=== PATIENT | female | born 1970 | race Caucasian/White ===

== ENCOUNTER 2018-04-11 03:55 | Emergency (ER) | payer BC ==
[~2018-04-11] VITALS: Ht 170.2 cm; Wt 102.3 kg
[2018-04-11 04:00] VITALS: BP 137/91; TEMP 97.9
[2018-04-11 04:49] LABS: BASO # 0.1 (0.0-0.2); BASO % 0.7 % (0.0-2.0); EOS # 0.1 (0.0-0.7); EOS % 1.6 % (0-4.0); GRAN # 4.1 (1.4-6.5); GRAN % 57.6 % (42.2-75.2); HEMATOCRIT 41.1 % (37.0-47.0); HEMOGLOBIN 14.2 g/dl (12.5-16.0); LYMPH # 2.4 (1.2-3.4); LYMPH % 34.6 % (20.0-51.0); MEAN CELL VOLUME 88 fl (80.0-100.0); MEAN CORPUSCULAR HEMOGLOBIN 30 pg (27.0-31.0); MEAN CORPUSCULAR HGB CONC 35 g/dl (33.0-37.0); MEAN PLATELET VOLUME 11.4 fl (7.4-10.4); MONO # 0.4 (0.1-0.6); MONO % 5.4 % (1.7-9.3); PLATELET COUNT 255 K/mm3 (130-400); RED BLOOD COUNT 4.68 M/mm3 (4.10-5.30); REDCELL DISTRIBUTION WIDTH-CV 11.7 % (11.5-14.5)
[2018-04-11 04:56] LABS: INR 2.4 (0.8-3.0); PROTHROMBIN TIME 27.4 SECONDS (9.7-12.8)
[2018-04-11 05:01] LABS: CALCIUM 9.5 mg/dL (8.4-10.2); CREATININE, serum 0.63 mg/dL (0.52-1.25); POTASSIUM 3.5 mmol/L (3.4-5.0)
[2018-04-11] MEDS ORDERED: JANTOVEN3 M1 PO (05:07)
[2018-04-11] MEDS ORDERED: WELLBUTRIN 75MG75 MG PO (05:08)
[2018-04-11] MEDS ORDERED: LEXAPRO20 MG PO (05:09)
[2018-04-11] MEDS ORDERED: PLAQUENIL 200M200 MG PO (05:12)
[2018-04-11] MEDS ORDERED: LIDODERM 5% PATC1 EA TP (05:29)
[2018-04-11] MEDS ORDERED: TYLENOL W/COD1 UDTAB PO (05:29)
[2018-04-11] MEDS ORDERED: FLEXERIL 1010 MG/TAB PO (05:29)
[2018-04-11 05:44] VITALS: PULSE 63
== END 2018-04-11 05:44 | disposition home or self-care (01) ==
LOC: COL.ER 03:55
PROVIDERS: Emergency Medicine
DX: S16.1XXA Strain of muscle, fascia and tendon at neck level, initial encounter (principal); M43.6 Torticollis; F41.9 Anxiety disorder, unspecified; F32.9 Major depressive disorder, single episode, unspecified; Z79.01 Long term (current) use of anticoagulants; X50.1XXA Overexertion from prolonged static or awkward postures, initial encounter; Z90.710 Acquired absence of both cervix and uterus
CPT/HCPCS: J1885; J2360; J3010; J7040

== ENCOUNTER → 2018-04-18 | Outpatient (CLI) | payer BC ==
[~2018-04-18] MED LIST: FLEXERIL 1010 MG/TAB PO; JANTOVEN3 M1 PO; LEXAPRO20 MG PO; LIDODERM 5% PATC1 EA TP; PLAQUENIL 200M200 MG PO; TYLENOL W/COD1 UDTAB PO; WELLBUTRIN 75MG75 MG PO
[2018-04-18 10:15] LABS: INR 1.8 (0.8-3.0); PROTHROMBIN TIME 20.3 SECONDS (9.7-12.8)
== END ==
LOC: COL.LAB 09:37
DX: Z79.01 Long term (current) use of anticoagulants (principal)

== ENCOUNTER 2020-01-30 11:42 | Emergency (ER) | payer BC ==
[~2020-01-30] VITALS: Ht 170.2 cm; Wt 110.0 kg
[2020-01-30 11:43] VITALS: TEMP 98.3
[2020-01-30] MEDS ORDERED: ELIQUIS 5MG PO (12:05)
[2020-01-30] MEDS ORDERED: LEXAPRO20 MG PO (12:06)
[2020-01-30] MEDS ORDERED: CRESTOR40 MG PO (12:06)
[2020-01-30 12:07] LABS: INR 1.3 (0.8-3.0); PROTHROMBIN TIME 14.1 SECONDS (9.7-12.8)
[2020-01-30 12:09] LABS: PARTIAL THROMBOPLASTIN TIME 35.1 SECONDS (26.0-37.0)
[2020-01-30 12:13] LABS: BASO % 0.3 % (0.0-2.0); EOS # 0.1 (0.0-0.7); EOS % 1.4 % (0-4.0); GRAN # 6.2 (1.4-6.5); GRAN % 68.8 % (42.2-75.2); HEMATOCRIT 40.4 % (37.0-47.0); HEMOGLOBIN 13.8 g/dl (12.5-16.0); LYMPH # 1.9 (1.2-3.4); LYMPH % 20.7 % (20.0-51.0); MEAN CELL VOLUME 88 fl (80.0-100.0); MEAN CORPUSCULAR HEMOGLOBIN 30 pg (27.0-31.0); MEAN CORPUSCULAR HGB CONC 34 g/dl (33.0-37.0); MEAN PLATELET VOLUME 11.1 fl (7.4-10.4); MONO # 0.8 (0.1-0.6); MONO % 8.6 % (1.7-9.3); PLATELET COUNT 243 K/mm3 (130-400); RED BLOOD COUNT 4.59 M/mm3 (4.10-5.30); REDCELL DISTRIBUTION WIDTH-CV 11.9 % (11.5-14.5)
[2020-01-30 12:18] LABS: ALANINE AMINOTRANSFERASE 167 U/L (4-34); ALBUMIN 4.4 gm/dL (3.5-5.0); ALKALINE PHOSPHATASE 116 U/L (50-136); ANION GAP 9 mmol/L (7-16); AST,SGOT 154 U/L (15-37); BILIRUBIN,TOTAL 1.8 mg/dL (0.0-1.0); BLOOD UREA NITROGEN 6 mg/dL (7-17); CALCIUM 9.8 mg/dL (8.4-10.2); CARBON DIOXIDE 27 mmol/L (22-30); CHLORIDE 104 mmol/L (98-107); CREATININE, serum 0.56 (0.52-1.25); GLUCOSE 92 mg/dL (74-106); MAGNESIUM 2.1 mg/dL (1.6-2.3); POTASSIUM 3.8 mmol/L (3.4-5.0); SODIUM 139 mmol/L (137-145); TOTAL PROTEIN 8.2 gm/dL (6.4-8.2)
[2020-01-30 12:34] LABS: TROPONIN-I < 0.012 ng/mL (0.000-0.035)
[2020-01-30 13:41] LABS: COLLECTION METHOD CLEAN CATCH
[2020-01-30 13:58] LABS: PH 7 (5-8); SQUAMOUS EPITHELIAL None Seen /hpf; URINE APPEARANCE Clear; URINE BACTERIA None Seen /hpf; URINE BILIRUBIN Negative (NEGATIVE); URINE BLOOD Negative (NEGATIVE); URINE COLOR Straw; URINE GLUCOSE Negative (NEGATIVE); URINE KETONE Negative (NEGATIVE); URINE LEUKOCYTE ESTERASE Negative (NEGATIVE); URINE NITRATE Negative (NEGATIVE); URINE PROTEIN(semi-quant) Negative (NEGATIVE); URINE RBC 0-2 /hpf; URINE UROBILINOGEN Negative (NEGATIVE)
[2020-01-30] MEDS ORDERED: ANTIVERT 25MG25 MG PO (16:32)
[2020-01-30 16:46] VITALS: BP 105/70; PULSE 85
== END 2020-01-30 17:20 | disposition home or self-care (01) ==
LOC: COL.ER 11:42
PROVIDERS: Emergency Medicine
DX: R42 Dizziness and giddiness (principal); Z79.01 Long term (current) use of anticoagulants
CPT/HCPCS: J2060; J2405; J7030; Q9967

== ENCOUNTER → 2020-06-09 | Outpatient (CLI) | payer BC ==
[~2020-06-09] MED LIST changes: +ANTIVERT 25MG25 MG PO; +CRESTOR40 MG PO; +ELIQUIS 5MG PO
== END ==
LOC: COL.RAD 07:09
DX: K76.0 Fatty (change of) liver, not elsewhere classified (principal); Z90.49 Acquired absence of other specified parts of digestive tract

== ENCOUNTER 2021-12-26 06:48 | Day surgery (SDC) | payer BC ==
[~2021-12-26] VITALS: Ht 170.2 cm; Wt 112.4 kg
[2021-12-26] MEDS ORDERED: OZEMPIC0.25 MG/0. SQ (07:04)
[2021-12-26] MEDS ORDERED: PROVENTIL0.09 MG/A1 IH (07:04)
[2021-12-26 07:13] VITALS: BP 106/76; PULSE 106; TEMP 97.1
[2021-12-26 09:00] VITALS: BP 93/69; PULSE 78; TEMP 97.3
--- NOTE | 2021-12-26 09:00 | NUR ---
PATIENT ARRIVES TO ROOM 2 VIA CART. ASSIST TO CHAIR X 1. PATIENT IS ALERT AND ORIENTED. DENIES AND NAUSEA OR PAIN. VITAL SIGNS WNL, B/P IS 93/69 WHICH IS WHAT IT WAS DURING PROCEDURE. PATIENT REQUESTS A CHOCOLATE CHIP MUFFIN AND APPLE JUICE. WILL CONTINUE TO MONITOR.
[2021-12-26 09:15] VITALS: BP 102/64; PULSE 78
--- NOTE | 2021-12-26 09:15 | NUR ---
PATIENT TOLERATED EATING AND DRINKING WELL. DENIES ANY NAUSEA OR PAIN. VITAL SIGNS WNL. WAITING FOR DOCTOR TO SPEAK WITH PATIENT. WILL CONTINUE TO MONITOR.
[2021-12-26 09:30] VITALS: BP 107/66; PULSE 81
--- NOTE | 2021-12-26 09:30 | NUR ---
PATIENT IS READY FOR DISCHARGE. DOCTOR AT BEDSIDE. VITAL SIGNS WNL. IV REMOVED. DISCHARGE INSTRUCTIONS GIVEN. WILL DISCHARGE VIA WHEELCHAIR WHEN PATIENT IS DRESSED.
[2021-12-26 10:54] VITALS: BP 93/69; PULSE 80
== END 2021-12-26 09:42 | disposition home or self-care (01) ==
LOC: SDCO 06:48
DX: Z12.11 Encounter for screening for malignant neoplasm of colon (principal); E11.9 Type 2 diabetes mellitus without complications; Z79.899 Other long term (current) drug therapy; Z79.01 Long term (current) use of anticoagulants
CPT/HCPCS: J2704; J7030

== ENCOUNTER 2023-07-12 19:52 | Inpatient (IN) | payer BC ==
[~2023-07-12] VITALS: Ht 170.2 cm; Wt 111.0 kg
[~2023-07-12 19:52] MED LIST changes: +OZEMPIC0.25 MG/02 SQ; +PROVENTIL0.09 MG/A1 IH
[2023-07-12 20:58] LABS: BASO # 0.1 K/mm3 (0.0-0.2); BASO % 0.7 % (0.0-2.0); EOS # 0.1 K/mm3 (0.0-0.7); EOS % 1.1 % (0.0-4.0); GRAN % 78.1 % (42.2-75.2); HEMATOCRIT 43.2 % (37.0-47.0); HEMOGLOBIN 14.7 g/dl (12.5-16.0); LYMPH # 1.3 K/mm3 (1.2-3.4); LYMPH % 14.3 % (20.0-51.0); MEAN CELL VOLUME 90 fl (80.0-100.0); MEAN CORPUSCULAR HEMOGLOBIN 31 pg (27-31); MEAN CORPUSCULAR HGB CONC 34 g/dl (33.0-37.0); MEAN PLATELET VOLUME 10.8 fl (7.4-10.4); MONO # 0.5 K/mm3 (0.1-0.6); MONO % 5.6 % (1.7-9.3); PLATELET COUNT 219 K/mm3 (130-400); RED BLOOD COUNT 4.82 M/mm3 (4.10-5.30); REDCELL DISTRIBUTION WIDTH-CV 11.9 % (11.5-14.5)
[2023-07-12 21:16] LABS: ALANINE AMINOTRANSFERASE 70 U/L (0-55); ALBUMIN 3.9 gm/dL (3.5-5.0); ALKALINE PHOSPHATASE 99 U/L (40-150); ANION GAP 11 mmol/L (7-16); AST,SGOT 43 U/L (5-34); BILIRUBIN,TOTAL 1.5 mg/dL (0.2-1.2); BLOOD UREA NITROGEN 17 mg/dL (10-20); CALCIUM 10.1 mg/dL (8.4-10.2); CARBON DIOXIDE 22 mmol/L (22-29); CHLORIDE 106 mmol/L (98-107); CREATININE, serum 0.73 mg/dL (0.57-1.11); GLUCOSE 116 mg/dL (70-99); POTASSIUM 3.9 mmol/L (3.5-4.5); SODIUM 139 mmol/L (136-145); TOTAL PROTEIN 7.7 gm/dL (6.2-8.1)
[2023-07-12 21:22] LABS: TROPONIN-I < 0.010 ng/mL (0.00-0.033)
[2023-07-13] VITALS (8 sets, daily range): BP systolic 100–131; BP diastolic 66–83; PULSE 69–123; TEMP 97–98.1
--- NOTE | 2023-07-13 02:45 | NUR ---
PT ARRIVED TO ROOM 343 FROM ED. HERE FOR TACHYCARDIA & PNEUMONIA. PT A&O X4. HR IN 130S, ON TELE. OTHER VSS & ON ROOM AIR. DENYING PAIN, N/V, OR SOB AT THIS TIME. INT TO LEFT AC PATENT. SCDS ON. PT AMBULATED TO RESTROOM INDEPENDENTLY. CALL LIGHT IN REACH & DENYING FURTHER NEEDS.
[2023-07-13 07:24] LABS: CHOLESTEROL RISK RATIO 7.5
--- NOTE | 2023-07-13 08:41 | NUR ---
PT RESTING IN BED DENIES NEEDS AT THIS TIME. AM BLOOD GLUCOSE 134 NO INSULIN REQUIRED. 02 @2L PNC TO MAINTAIN SATS >90. lungs coarse. RT in to see pt this am.
--- NOTE | 2023-07-13 10:08 | NUR ---
Initial visit; Patient thanked Plastic Surgery Technician for stopping by and letting her know of the availability of Spiritual Care though she chose to decline services. Plastic Surgery Technician wished her well and mentioned that her smile will certainly help in her healing if she keeps it up!
--- NOTE | 2023-07-13 15:07 | NUR ---
cabin worker met with pt to complete discharge planning. Pt reports she lives alone in [place]. She sees Dr. Bravo and obtains medications from [facility] with no difficulties. She updated her contact to be her daughter, Harriet [phone]. She completed a DPOA-[facility] listing her daughter too. Pt is indpendent with [facility] and uses no DME. She intends to return home at discharge and reports she ambulates fine. Discharge Plan: Home
--- NOTE | 2023-07-13 21:00 | NUR ---
PT A&OX4. PLEASANT AND COOPERATIVE. NO DISTRESS. SEE SHIFT ASSESSMENT. IV INFUSING AT 125CC TO LT F/A. HAVING ALITTLE BACK PAIN. TYLENOL GIVEN. SCD'S REMOVED PER REQUEST. ACCUCHECK 138. NO SSI. ASSISTED UP TO RECLINER. CALL LIGHT IN REACH. NO OTHER NEEDSD.
[2023-07-14 01:25] VITALS: BP_SYST 121
[2023-07-14 03:50] VITALS: BP 153/78; PULSE 75; TEMP 97.9
[2023-07-14 04:05] VITALS: BP_SYST 153
--- NOTE | 2023-07-14 04:33 | NUR ---
PT REPORTED RT ARM SWOLLEN AND WTT. PULSES STRONG. C/O ACHEY PAIN. RT KNEE SWOLLEN AND HOT TO TOUCH. PULSES STRONG. PT REPORTED LEGS SHAKY WHEN SHE GOT UP TO BR.
--- NOTE | 2023-07-14 06:45 | NUR ---
Shift report received from night RN. Pt sleeping supine in bed w/ HOB elevated to 30 degr. Resps are even & unlabored. Call light pt's reach.
[2023-07-14 07:39] VITALS: BP 142/84; PULSE 91; TEMP 97.9
--- NOTE | 2023-07-14 07:50 | NUR ---
ENGINE MONITOR at bedside for VS check. Pt reporting increased RUE pain w/ blood pressure check. Pt reporting RUE pain began during the night. RUE cap refill < 3 sec, strong radial pulse noted, (non-pitting) swelling noted, & pt reporting pain w/ movement & touch. Hospitalist notified. EKG ordered per Hospitalist. RT notified. Pt aware.
--- NOTE | 2023-07-14 08:11 | NUR ---
RT at bedside for EKG.
--- NOTE | 2023-07-14 08:38 | NUR ---
Pt sitting up in bed talking on her cell phone. Pt denies shortness of breath, chest pain, general pain/discomfort. Other needs denied. Call light in reach.
[2023-07-14 09:53] VITALS: BP_SYST 142
[2023-07-14 09:57] LABS: HEMATOCRIT 40.2 % (37.0-47.0); HEMOGLOBIN 13.1 g/dl (12.5-16.0); MEAN CELL VOLUME 90 fl (80.0-100.0); MEAN CORPUSCULAR HEMOGLOBIN 29 pg (27-31); MEAN CORPUSCULAR HGB CONC 33 g/dl (33.0-37.0); MEAN PLATELET VOLUME 10.7 fl (7.4-10.4); PLATELET COUNT 211 K/mm3 (130-400); RED BLOOD COUNT 4.45 M/mm3 (4.10-5.30); REDCELL DISTRIBUTION WIDTH-CV 12.3 % (11.5-14.5)
[2023-07-14 11:02] VITALS: BP 129/80; PULSE 89; TEMP 97.9
[2023-07-14] MEDS ORDERED: OMNICEF 300MG300 MG PO (11:49)
[2023-07-14] MEDS ORDERED: ZITHROMAX500 M2 PO (11:53)
--- NOTE | 2023-07-14 12:29 | NUR ---
Pt sitting up in bed watching tv. DC Summary reviewed w/ the pt. She had no further questions. Pt would like to stay to eat lunch before discharging home. Valuable items denied.
--- NOTE | 2023-07-14 13:08 | NUR ---
Pt ambulated off unit w/ BUCKLE GLUER for discharge home.
== END 2023-07-14 13:03 | disposition home or self-care (01) | DRG 194 ==
LOC: COL.ER 19:52 → SURG 07-13 01:40
PROVIDERS: Internal Medicine; Nurse Practitioner; Nurse Practitioner Family; ADMIT Internal Medicine
DX: J18.9 Pneumonia, unspecified organism (principal); D68.51 Activated protein C resistance; E78.5 Hyperlipidemia, unspecified; F41.9 Anxiety disorder, unspecified; J45.909 Unspecified asthma, uncomplicated; Z20.822 Contact with and (suspected) exposure to COVID-19; E11.9 Type 2 diabetes mellitus without complications; F32.A Depression, unspecified; M06.9 Rheumatoid arthritis, unspecified; I45.81 Long QT syndrome; Z88.8 Allergy status to other drugs, medicaments and biological substances; Z90.49 Acquired absence of other specified parts of digestive tract; Z90.710 Acquired absence of both cervix and uterus; Z86.711 Personal history of pulmonary embolism; Z79.01 Long term (current) use of anticoagulants; Z79.899 Other long term (current) drug therapy
CPT/HCPCS: J0456; J0696; J2930; J7030; J7050; J7120; Q9967